=== PATIENT | male | born 1950 | race Caucasian/White ===

== ENCOUNTER → 2022-09-02 | Outpatient (CLI) | payer OTHER, SELFPAY ==
[2022-09-02 17:43] LABS: Absolute Lymphocyte Count 0.93 X10^3/uL (0.83-4.51); Absolute Neutrophil Count 3.7 X10^3/uL (2.0-7.7); Basophil# 0.02 X10^3/uL; Basophil% 0.4 % (0-1); Eosinophil# 0.06 X10^3/uL; Eosinophils% 1.2 % (0-5); Hematocrit 46.6 % (40-54); Hemoglobin 15.5 g/dL (13.0-16.5); Lymphocyte # 0.93 X10^3/ul (0.83-4.51); Lymphocyte % 17.9 % (19-41); Mean Corp Hgb Conc 33.3 g/dL (32-36); Mean Corpuscular Hgb 30.1 pg (27.0-32.0); Mean Corpuscular Volume 90.5 fL (80-94); Mean Platelet Vol. 9.8 fl (6.2-12.0); Monocyte# 0.49 X10^3/uL; Monocyte% 9.4 % (0-10); NRBC Flagged by Analyzer 0 % (0-5); Neutrophil # 3.68 X10^3/uL (2.7-7.7); Neutrophil % 70.7 % (47-70); Platelet Count 147 K/mm3 (150-450); RBC Distribution Width CV 13.2 % (11.6-14.6); RBC Distribution Width SD 43.5 fl (35.1-43.9); Red Blood Count 5.15 M/mm3 (4.6-6.2); White Blood Count 5.2 K/mm3 (4.4-11.0)
[2022-09-02 18:07] LABS: ALB/GLOB Ratio 1.1 RATIO (0.9-2.4); AST(SGOT) 24 U/L (15-37); Alanine Aminotransfer ALT/SGPT 33 U/L (16-61); Albumin, Serum 3.8 g/dL (3.2-5.0); Alkaline Phosphatase 55 U/L (45-117); Anion Gap 7 (5-15); BUN 22 mg/dL (7-18); BUN/Creat Ratio 18.5 RATIO (10-20); Chloride 105 mmol/L (98-107); Creatinine, Serum 1.19 mg/dL (0.70-1.30); EST Glomerular Filtration Rate 64 mL/min (>60); Est Glom Filt Rate - Afr Amer 77 mL/min (>60); Globulin 3.5 g/dL (2.2-4.2); Glucose 119 mg/dL (74-106); PSA,Total - Annual Screen 1.62 ng/mL (0.00-4.00); Potassium 3.8 mmol/L (3.5-5.1); Protein, Total 7.3 g/dL (6.4-8.2); Sodium Level 139 mmol/L (136-145)
== END | disposition home or self-care (01) ==
LOC: BFHLAB 14:08
PROVIDERS: Visit Provider Family Medicine
DX: Z00.00 Encounter for general adult medical examination without abnormal findings (principal); Z12.5 Encounter for screening for malignant neoplasm of prostate
CPT/HCPCS: 36415; 80053; 84153; 85025; G0103

== ENCOUNTER → 2022-09-16 | Outpatient (CLI) | payer SELFPAY, OTHER ==
--- NOTE | 2022-09-16 13:51 | ECHOD_ITS ---
Reason For Study: Murmur Procedure This was a 2D Doppler, Color Flow transthoracic echocardiogram. Exam performed in department. Left Ventricle Normal LV size. Left ventricular systolic function is normal. The estimated ejection fraction is 60 %. No regional wall motion abnormalities noted. Right Ventricle Normal RV size. Normal systolic function. Atria Normal left atrium. Normal right atrium. Mitral Valve Normal mitral valve. Mild (1+) eccentric mitral valve insufficiency. Tricuspid Valve Normal tricuspid valve. Mild to moderate (1-2+) tricuspid valve insufficiency. Pulmonary artery systolic pressure is 40 mmHg. Aortic Valve Normal aortic valve. Trisinus/trileaflet aortic valve. Pulmonic Valve Normal pulmonic valve. Great Vessels Normal aortic root. The pulmonary artery is normal size. Normal inferior vena cava. Pericardium/Pleural No pericardial effusion. MMode/2D Measurements & Calculations LVIDd: 6.0 cm IVSd: 1.3 cm Ao root diam: 3.4 cm LVIDs: 3.8 cm LVPWd: 1.1 cm LA dimension: 4.0 cm RVDd: 3.6 cm FS: 36.3 % LAV(MOD-bp): 68.4 ml LA A4 area: 21.1 cm2 RA A4 area: 17.9 cm2 LAV(MOD-bp) Indexed: 33.1 ml/m2 LAV(MOD-sp2): 71.6 ml LAV(MOD-sp4): 64.4 ml Time Measurements MV dec time: 0.22 sec Doppler Measurements & Calculations MV E max bronson: 92.6 cm/sec Lat Peak E' Bronson: 17.6 cm/sec Med Peak E' Bronson: 12.7 cm/sec MV A max bronson: 55.0 cm/sec E/E' lat: 5.3 E/E' med: 7.3 MV E/A: 1.7 MV V2 max: 109.2 cm/sec MV P1/2t max bronson: 109.2 cm/sec Ao V2 max: 127.5 cm/sec MV max P.8 mmHg MV P1/2t: 72.2 msec Ao max P.5 mmHg MV V2 mean: 45.2 cm/sec MV dec slope: 442.9 cm/sec2 Ao V2 mean: 82.1 cm/sec MV mean P.1 mmHg MVA(P1/2t): 3.0 cm2 Ao mean P.2 mmHg MV V2 VTI: 29.7 cm Ao V2 VTI: 28.6 cm AV (velocity ratio): 0.78 LV V1 max: 103.2 cm/sec MR max bronson: 546.9 cm/sec PA V2 max: 104.6 cm/sec LV V1 max P.3 mmHg MR max P.6 mmHg LV V1 mean P.1 mmHg LV V1 mean: 66.0 cm/sec LV V1 VTI: 22.3 cm TR max bronson: 298.1 cm/sec TR max P.5 mmHg ECHO/Echo Complete Interpretation Summary Normal LV size. Left ventricular systolic function is normal. The estimated ejection fraction is 60 %. Mild (1+) eccentric mitral valve insufficiency. Ordering Physician: Al Smith Referring Physician: Al Smith Performed By: Dayton Sierra [facility]
== END | disposition home or self-care (01) ==
PROVIDERS: PCP Family Medicine; Referring Provider Family Medicine; Visit Provider Family Medicine
DX: R01.1 Cardiac murmur, unspecified (principal)
CPT/HCPCS: 93306